=== PATIENT | male | born 1980 | race Caucasian/White ===

== ENCOUNTER → 2017-05-16 | Outpatient (CLI) | payer SELFPAY ==
--- NOTE | 2017-05-16 15:44 | CT ---
CT abdomen pelvis without contrast Indication: Left flank pain. Technique: Helical CT images of the abdomen and pelvis were obtained without contrast. Reformatted i mages in the coronal and sagittal planes were also generated for review. Comparison: None Findings: The visualized lung bases are clear. No aggressive osseous lesions are identified. Within the limits of a noncontrast exam, a small cyst is noted within the right hepatic dome. The li jose l, collapsed gallbladder, spleen, pancreas, adrenals and right kidney otherwise appear unremarkabl e. There is a nonobstructing 5-6 mm calculus within the mid left kidney. A 2-3 mm stone is also present within the dependent urinary bladder. There is a 3 mm calcification within the central prostate gla nd which could represent a stone within the prostatic urethra. Additional small calcifications adjac ent to the inferior left margin of the urinary bladder are felt to reflect phleboliths, although a d istal left ureterolith is difficult to exclude. No hydroureteronephrosis of either kidney is identif ied. A small sliding hiatal hernia is noted. The GI tract otherwise appears normal. Small fat containing bilateral inguinal hernias are noted. No free air, free fluid or lymphadenopathy is identified. Impression: 1. Nonobstructing left-sided nephrolithiasis and 2-3 mm stone within the dependent urinary bladder. An additional 3 mm calcification within the central prostate gland could possibly reflect a stone wi thin the prostatic urethra - clinical correlation for bladder outlet obstruction is recommended. 2. Additional small calcifications adjacent to the inferior left urinary bladder likely reflect phle boliths, although a stone within the distal left ureter is difficult to exclude. No current evidence of hydroureteronephrosis of either kidney. 3. Additional ancillary findings as above. Reported By:
== END | disposition home or self-care (01) ==
LOC: RAD 14:25
DX: N20.0 Calculus of kidney (principal); Z87.442 Personal history of urinary calculi
CPT/HCPCS: 74176